=== PATIENT | male | born 2000 | race Caucasian/White ===

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

== ENCOUNTER 2021-07-11 14:37 | Emergency (ER) | payer OTHER ==
[~2021-07-11] VITALS: Ht 167.6 cm; Wt 59.0 kg
[~2021-07-11 14:37] MED LIST changes: +DOLOGEN 325-11 EACH PO
[2021-07-11] MEDS ORDERED: TUSICOF CAPLET1 EACH PO (18:30)
[2021-07-11] MEDS ORDERED: ZITHROMAX500 MG PO (18:30)
== END 2021-07-11 18:56 | disposition home or self-care (01) ==
LOC: EMR PED 14:37
DX: B34.9 Viral infection, unspecified (principal); B96.0 Mycoplasma pneumoniae [M. pneumoniae] as the cause of diseases classified elsewhere; Z03.818 Encounter for observation for suspected exposure to other biological agents ruled out